=== PATIENT | female | born 2000 | race Caucasian/White ===

== ENCOUNTER 2023-12-16 01:30 | Emergency (ER) | payer BC, SELFPAY ==
[2023-12-16] MEDS ORDERED: Metoclopramide HCl 10 MG (2 mL) VIAL ONE (01:58)
== END 2023-12-16 02:44 | disposition home or self-care (01) ==
LOC: ERS 01:30
DX: F10.129 Alcohol abuse with intoxication, unspecified (principal); Y90.9 Presence of alcohol in blood, level not specified
CPT/HCPCS: 96374; J2765